=== PATIENT | male | born 1990 | race Two or more races ===

== ENCOUNTER 2017-04-04 12:42 | Day surgery (SDC) | payer BC ==
[2017-03-28 09:55] LABS: HEMATOCRIT 44.7 % (37.9-51.0); HEMOGLOBIN 14.4 g/dL (13.5-17.0); HGB HCT DIFFERENCE -1.5; MEAN CORPUSCULAR HEMOGLOBIN 29.2 pg (27.0-33.4); MEAN CORPUSCULAR HGB CONC 32.3 g/dL (32.0-36.0); MEAN CORPUSCULAR VOLUME 90 fl (80-97); RED BLOOD COUNT 4.95 10^6/uL (4.35-5.55); RED CELL DISTRIBUTION WIDTH 13.2 % (11.5-14.0); WHITE BLOOD COUNT 7.5 10^3/uL (4.0-10.5)
[~2017-04-04 12:42] MED LIST: ACETAMINOPHEN 325 MG TABLET PO PRN; CEFAZOLIN 1 GM/D5W RTU 1 GM/50 ML RTUPB IV PRN; LACTATED RINGERS 1000 ML IV PRN; LIDOCAINE 0.5% INJ-PF (5 MG/ML) 50 ML SDV SUBCUT PRN
[2017-04-04] MEDS ORDERED: BUPIVACAINE INJ/PF LIPOSOME/PF 266 MG/20 ML SDV ONE (14:00)
[2017-04-04] MEDS ORDERED: PROPOFOL INJ 200 MG/20 ML VIAL IV ONE (14:00)
[2017-04-04] MEDS ORDERED: ONDANSETRON HCL INJ/PF 4 MG/2 ML SDV ONE (14:00)
[2017-04-04] MEDS ORDERED: BUPIVACAINE HCL 0.25 % INJ/PF (2.5 MG/1 ML) 30 ML VIAL ONE (14:00)
[2017-04-04] MEDS ORDERED: FENTANYL CITRATE INJ/PF 100 MCG/2 ML AMPUL ONE ×2 (14:00→16:27)
[2017-04-04] MEDS ORDERED: MIDAZOLAM 2 MG/2 ML INJ ONE (14:01)
[2017-04-04] MEDS ORDERED: HYDROMORPHONE HCL INJ/PF 2 MG/ML AMPULE ONE (14:01)
[2017-04-04] MEDS ORDERED: FENTANYL CITRATE INJ/PF 100 MCG/2 ML AMPUL IV PRN ×3 (14:44)
[2017-04-04] MEDS ORDERED: MEPERIDINE HCL/PF INJ 25 MG/1 ML DISP.SYRIN IV PRN (14:44)
[2017-04-04] MEDS ORDERED: DIPHENHYDRAMINE HCL 50 MG/ML VIAL IV PRN (14:44)
[2017-04-04] MEDS ORDERED: ONDANSETRON HCL INJ/PF 4 MG/2 ML SDV IV PRN ×2 (14:44→15:57)
--- NOTE | 2017-04-04 15:56 | Operative Report ---
Operative Report DATE OF SURGERY: 04/04/17 PREOPERATIVE DIAGNOSIS: Right inguinal hernia reducible, indirect POSTOPERATIVE DIAGNOSIS: Same OPERATION: Right inguinal herniorrhaphy with polypropylene plug and overlay mesh repair SURGEON: SHAYY SAUNDERS GUEST SERVICES AGENT: TIMOTHY FAIR ANESTHESIA: GA TISSUE REMOVED OR ALTERED: Hernia sac in fragments 2 COMPLICATIONS: None ESTIMATED BLOOD LOSS: Scant INTRAOPERATIVE FINDINGS: See below PROCEDURE: The patient was seen in the preop holding area with the right inguinal area was marked. The patient then taken to the operating room where general anesthesia was induced. Right groin was exposed previously clipped of hair, prepped and shaved prior then prepped with Betadine. Surgical plan surgical timeout were conducted. Skin was anesthetized with quarter percent Marcaine. A standard right inguinal herniorrhaphy incision was made with a #10 blade. Skin subcutaneous fascia all divided with a knife and electrocautery. Deeper tissues were anesthetized with quarter percent Marcaine. External oblique aponeurosis opened along direction of its fibers sharply with knife and scissors. The ilioinguinal nerve was identified and spared throughout the entire operation Findings are significant for a bulging hernia going down into the right hemiscrotum. Blunt dissection was used to mobilize the hernia and associated contents. A Kike drain was looped around all of the structures and then we dissected the hernia sac free from the cord structures. 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 We opened up the hernia sac and confirmed it was a indirect inguinal hernia, with the floor the inguinal canal medially and reasonably sound shape. There were no contents within the hernia sac. Hernia sac was tied off at its base with 2-0 Vicryl suture, sac amputated into fragments and the stump allowed to retract into the retroperitoneum. We analyzed the floor the inguinal canal and the residual defect at the site of the peritoneal stump. I felt that a plug overlying mesh repair would be appropriate. A medium size Bard prosthetic was brought onto the field. The plug was inverted into position just medial to the cord structures at the site of the internal inguinal ring and secured with 3-0 PDS sutures. The overlay mesh was sewn to conjoined tendon and Poupart's ligament and 1 stitch in Amarjit' s ligament taking care not to create a overly tight internal inguinal ring. External oblique aponeurosis closed long direction of its fibers with 2-0 Vicryl suture, Jud's fascia closed with 3-0 Vicryl skin with 3-0 Vicryl Dermabond glue. And skin anesthetized with Exparel, 20 cc. Postop procedure well, extubated and taken recovery in stable condition. The physician auction assistant, Ms. Fair, provided assistance during this case by: Assisting , retracting tissue, instillation of local anesthesia and closure of skin incisions.
[2017-04-04] MEDS ORDERED: OXYCODONE-ACETAMINOPHEN 5-325 MG TABLET PO PRN (15:57)
[2017-04-04] MEDS ORDERED: RINGERS SOLUTION,LACTATED 1,000 ML IV PRN (15:57)
[2017-04-04] MEDS ORDERED: MORPHINE SULFATE 10 MG/ML INJ IV PRN (15:57)
--- NOTE | 2017-04-04 16:00 | PDOC DISCHARGE SUMMARY ---
Discharge Summary (SDC) - Discharge Final Diagnosis: Right inguinal hernia Date of Surgery: 04/04/17 Discharge Date: 04/04/17 Condition: Good Forms: ASU Anesthesia D/C Instruction, Discharge POC-Surgical Service Treatment or Instructions: [facility] [address] [place], [place] [address] Discharge Instructions: Open Abdominal Procedures (Hernia) 1.General Information: a. DO NOT DRIVE a car or operative machinery for 1-2 weeks or as long as taking Narcotic pain medication. b. DO NOT consume alcohol, tranquilizers, sleeping medication, or any non- prescribed medication for 24 hours unless approved by your doctor or as long as taking pain medication. c. DO NOT make important decisions or sign any important papers for the first 24 hours after surgery. d. When discharged home the same day as surgery have a responsible person with you the first night. 2.Activity Restriction: 4 weeks; a. Avoid heavy lifting (> 10-15 lbs), straining abdominal muscles and sports, mowing lawn, vacuum still cleaner tube and bending over a lot. b. Walking is important to avoid blood clots in the legs and deep breathing can prevent pneumonia. c. If it fine to go for walks, up and down steps, and ride in a car. 3.Treatment: a. You may remove dressing or Band-Aids the day after surgery and shower then daily is fine, but you should not bathe in a tub or go swimming for 2 weeks. b. If you have paper strips (steri strips) on the skin, do not remove them as they will fall off in the coming weeks. Pat them dry after your shower. Sutures beneath the paper strips dissolve. If you have skin sutures or metal josephine they will be removed on your follow up visit. They may also get wet with a shower. c. Do not use oils, powders, or lotion on your incision. 4.Medications: a. You may take narcotic prescription tablets for pain if needed, one or two every 4 hours (_Percocet ). b. Stop the narcotic when able since you cannot take it and drive and they cause constipation. You may switch to plain Tylenol, Advil, or Aleve as you transition from the narcotic. Many adults find good pain relief with Advil 600-800 mg three times a day with meal to work well and avoid narcotic use. High dose Advil should only be used for short courses since it can cause indigestion, ulcer bleeding in the stomach and kidney problems. c. You may resume all normal medications unless a change is specified by your doctors. d. a. If going home the same day as surgery start with clear liquids, and if you do well then advance to normal foods low inf fat and protein. Smaller portion size may be haider the first night. b. When discharged after hospital stay you may resume a normal diet. 6.Notify Physician If: a. Pain is not relieved by pain medication b. Persistent nausea and vomiting c. Chills, fever (above 101) d. Persistent bleeding or swelling at the operative site e. Unable to urinate for 6-8 hours f. Increased redness, drainage, or foul smelling discharge from incision 7. Follow Up Care: a. Please call our office to schedule an appointment with your doctor for 2 weeks. In the event of any postoperative problems or questions you may call our office during business hours or the On-Call surgeon through the pneumatic hoist operator at [facility]. [facility] [phone] [facility] [phone] (Ask for the surgeon educational resource center teacher) b. I understand the instructions for my postoperative care as described above and a copy has been given to me. _ Witness Patient/Significant Other Date Prescriptions: Oxycodone HCl/Acetaminophen [Percocet 5-325 mg Tablet] 1 tab PO ASDIR PRN #25 tab PRN Reason: For Pain Referrals: SHAYY VICTORIA MD [ACTIVE STAFF] - Discharge Diet: As Tolerated Discharge Activity: No Lifting Over 10 Pounds, No Lifting/Push/Pulling Home Care Assistance: None Needed Report the Following to Your Physician Immediately: Shortness of Breath, Increase in Pain, Fever over 101 Degrees
[2017-04-04] MEDS ORDERED: MEPERIDINE HCL/PF INJ 25 MG/1 ML DISP.SYRIN ONE (16:14)
[2017-04-04 17:57] VITALS: BP 148/94
== END 2017-04-04 18:05 | disposition home or self-care (01) ==
LOC: OROUT 12:42
PROVIDERS: ATTEND Surgery
PROC: 0YU50JZ Supplement Right Inguinal Region with Synthetic Substitute, Open Approach (ICD-10-PCS; principal; 2017-04-04 14:30)
DX: K40.90 Unilateral inguinal hernia, without obstruction or gangrene, not specified as recurrent (principal); F17.210 Nicotine dependence, cigarettes, uncomplicated
CPT/HCPCS: 36415; 85027; 88302 ×2; 49505; C1781; J2250; J0690; J3010; J2175; J1170; J2405; J2704; C9290; 830